=== PATIENT | male | born 1975 | race Caucasian/White ===

== ENCOUNTER 2018-07-15 07:37 | Emergency (ER) | payer OTHER ==
[~2018-07-15] VITALS: Ht 165.1 cm; Wt 103.0 kg
[2018-07-15 07:40] VITALS: BP 165/98
[2018-07-15] MEDS ORDERED: KETOROLAC 30 MG/1 ML ONE (08:06)
[2018-07-15] MEDS ORDERED: METHOCARBAMOL 750 MG TABLET ONE (08:06)
[2018-07-15] MEDS ORDERED: KETOROLAC 30 MG/1 ML IM ONE (08:30)
[2018-07-15] MEDS ORDERED: METHOCARBAMOL 750 MG TABLET PO ONE (08:30)
== END 2018-07-15 09:34 | disposition home or self-care (01) ==
LOC: ED 09:05
DX: S39.012A Strain of muscle, fascia and tendon of lower back, initial encounter (principal); M51.36 Other intervertebral disc degeneration, lumbar region; X58.XXXA Exposure to other specified factors, initial encounter; Y93.89 Activity, other specified; Y92.89 Other specified places as the place of occurrence of the external cause; Y99.8 Other external cause status
CPT/HCPCS: 72110; 96372; 99283; J1885